=== PATIENT | female | born 1980 | race Two or more races ===

== ENCOUNTER 2024-01-28 10:41 | Outpatient (CLI) | payer OTHER | END 2024-01-28 10:45 | disposition home or self-care (01) | LOC: TOM 10:41 | PROVIDERS: ATTEND Otolaryngology | DX: H70.12 Chronic mastoiditis, left ear (principal) ==

== ENCOUNTER 2025-01-25 12:10 | Outpatient (CLI) | payer OTHER | END 2025-01-25 12:20 | disposition home or self-care (01) | LOC: MAMO-SONO 12:10 | PROVIDERS: ATTEND General Practice | DX: Z12.31 Encounter for screening mammogram for malignant neoplasm of breast (principal) ==